=== PATIENT | male | born 1970 | race Caucasian/White ===

== ENCOUNTER 2017-05-11 19:27 | Emergency (ER) | payer BC ==
[~2017-05-11] VITALS: Ht 180.3 cm; Wt 113.8 kg
[2017-05-11 19:36] VITALS: BP 137/112
== END 2017-05-11 21:03 | disposition left against medical advice (07) ==
LOC: ED 19:27
DX: Z53.21 Procedure and treatment not carried out due to patient leaving prior to being seen by health care provider (principal)